=== PATIENT | female | born 1965 | race Caucasian/White ===

== ENCOUNTER 2017-08-18 05:49 | Day surgery (SDC) | payer OTHER ==
[2017-08-18] MEDS ORDERED: MIDAZOLAM 1 MG/ML 2 ML INJ (08:04)
[2017-08-18] MEDS ORDERED: FENTAnyl 50 MCG/ML VIAL (08:04)
== END 2017-08-18 11:18 | disposition home or self-care (01) ==
LOC: GIL 05:49
DX: Z12.11 Encounter for screening for malignant neoplasm of colon (principal); K64.4 Residual hemorrhoidal skin tags
CPT/HCPCS: 45378